=== PATIENT | male | born 1960 | race African-American/Black ===

== ENCOUNTER 2018-06-04 23:17 | Emergency (ER) | payer SELFPAY ==
[~2018-06-04] VITALS: Ht 200.7 cm; Wt 143.0 kg
[2018-06-05] MEDS ORDERED: HYDROCHLOROTHIAZIDE 25MG TABLET PO ONE (00:15)
[2018-06-05 00:16] VITALS: BP 208/125
[2018-06-05 00:28] LABS: BASOPHILS % 0.5 % (0.0-2.0); EOSINOPHILS % 2.6 % (0.0-5.0); HEMATOCRIT. 42.7 % (42.0-52.0); HEMOGLOBIN. 14.7 g/dL (14.0-18.0); LYMPHOCYTES % 51.3 % (20.0-50.0); MEAN CORPUSCULAR HEMOGLOBIN 32.4 pg (28.0-32.0); MEAN CORPUSCULAR VOLUME 94.2 fL (80.0-94.0); MEAN PLATELET VOLUME 8.1 fl (7.4-10.4); MONOCYTES % 5.9 % (2.0-8.0); NEUTROPHILS % 39.7 % (40.0-76.0); PLATELET 187 x1000/uL (130-400); RED BLOOD CELL COUNT 4.53 mill/uL (4.7-6.1); RED CELL DISTRIBUTION WIDTH 13.3 % (11.6-14.6)
[2018-06-05 00:32] LABS: CHLORIDE 105 mEq/L (98-107)
[2018-06-05] MEDS ORDERED: AMLODIPINE 5MG TABLET PO ONE (01:00)
== END 2018-06-05 01:05 | disposition home or self-care (01) ==
LOC: ER 23:17
DX: I16.0 Hypertensive urgency (principal); I10 Essential (primary) hypertension; E11.9 Type 2 diabetes mellitus without complications
CPT/HCPCS: 36415; 93005; 99284